=== PATIENT | male | born 1940 | race Caucasian/White ===

== ENCOUNTER 2020-07-28 15:39 | Emergency (ER) | payer MEDICARE ==
--- NOTE | 2020-07-28 19:54 | ER ---
REASON FOR EMERGENCY ROOM VISIT: Fatigue and shortness of breath on exertion. HISTORY: This 80-year-old man comes in because of persistent dyspnea on exertion over the past months' time. Over the past few days, it has gotten even more troublesome to him and his , although when he is not exerting himself he denies any dyspnea or chest pain. In early May, there were 5 members of his family who tested positive for COVID-19. I cannot recall exactly how many of these clinically had clinical COVID-19 illness, but 5 of them definitely tested positive. The patient and his at the same time developed some sinus type symptoms with congestion and nasal rhinorrhea followed by loss of taste and smell. They were told not to bother coming in and getting a COVID test since they had no other symptoms and they were doing alright. They followed these directions and the 's symptoms resolved. However, the patient's symptoms evolved over the next couple of weeks to a cough that moved down to his chest area. It was minimally productive and it eventually resolved. However, since late May, he has had dyspnea on exertion and in fact, [facility], at which time he had complaints of dyspnea on exertion. No chest x-ray was performed. His doctor told him to "take it easy" and that was the extent of it. He did not have a COVID test done at that time. Throughout all this, he denies any chest pain. He has not had a cough. He has not had any GI symptoms. He denies fever or chills. He has not had any hemoptysis. PAST MEDICAL HISTORY: Significant for: 1. Hypertension. 2. Benign prostate hyperplasia symptoms. 3. No history of cardiac disease or diabetes. MEDICATIONS: Include metoprolol 100 mg p.o. daily, Flomax 0.4 mg p.o. daily, sertraline 50 mg p.o. daily, and famotidine 10 mg p.o. daily. ALLERGIES: TO PREDNISONE. REVIEW OF SYSTEMS: Pertinent positives and negatives as listed in the HPI. PHYSICAL EXAMINATION: GENERAL: He is a pleasant man who does not appear to be in any acute distress. VITAL SIGNS: He is afebrile. Heart rate is 60, blood pressure 129/73, respirations 16, O2 sats 97%. HEENT: Head is normocephalic. No scleral icterus. No conjunctivitis is noted. Oropharynx is normal in appearance. NECK: Without adenopathy. Trachea is midline. CHEST: He has good air exchange with no wheezes, rhonchi, or rales. CARDIAC: Regular rate without murmur. ABDOMEN: Nondistended. Bowel sounds are present. Soft and nontender. No hepatosplenomegaly. EXTREMITIES: Normal pulses. No edema. No deformities. SKIN: No rashes. LABORATORY DATA: We obtained a CBC and this is normal with a white count of 6600 and a hemoglobin of 14.3. CMP is all within normal limits with the exception that his glucose is mildly elevated at 126, but this is nonfasting. His SARS-CoV-2 RNA was negative. A chest x- ray was revealing in that it showed what was called a nearly confluent reticulonodular pulmonary opacities throughout the lungs, possibly suggestive of COVID-19 pneumonia versus pulmonary edema. IMPRESSION: Exertional Dyspnea, possibly secondary to Covid19 Given his symptoms and I think it is entirely possible that he is experiencing sequelae of COVID-19, from which he has recovered for the most part. His dyspnea could be results of residual scarring as a result of COVID-19 or some fluid overload, but I suspect the former more than the latter. In light of his feeling perfectly normal at rest, and his only complaint being dyspnea on exertion, I thought it was sensible for him to follow up with his primary care provider, which he states is at the [facility]. We did discuss the advisability of him having a primary care provider here locally, but he prefers to continue with his care at the [facility]. He assures me he can get in to see him early this week, which is what I advised. I also told him and his that it would be sensible to repeat a COVID test, possibly even an antibody test for COVID to document that he has had the disease. He understands this. At this point, he is not a candidate for anything such as dexamethasone, particularly since he is allergic to prednisone and he is not a candidate for remdesivir or monoclonal antibody either, given his Covid19 test was negative. I advised him on vitamin D3, vitamin C, and zinc as well some other general supportive measures. Certainly, if his symptoms should worsen, he should return here or be seen promptly by his primary care provider. All questions were answered. They understand and agree with this plan. BARBARA/NELSON /[id number] JESS
--- NOTE | 2020-07-29 08:41 | CR ---
Date of Service: 07/28/20 Clinical Data: history of covid symptoms AP CHEST: No priors. The patient has taken a poor inspiration. The heart is mildly enlarged. It is most likely accentuated by the poor inspiration and projection. There are poorly defined ground-glass opacities throughout both lungs with patchy areas of consolidation bilaterally. Viral pneumonia should be considered. No pneumothorax. No pleural effusions. [id number] [facility]
== END 2020-07-28 18:52 | disposition home or self-care (01) ==
LOC: LB.ED 15:39
DX: R06.00 Dyspnea, unspecified (principal); R53.83 Other fatigue; I10 Essential (primary) hypertension; Z88.8 Allergy status to other drugs, medicaments and biological substances; Z79.899 Other long term (current) drug therapy; Z20.822 Contact with and (suspected) exposure to COVID-19
CPT/HCPCS: 36415; 71045; 80053; 85025; 99283; 99285-25; U0002

== ENCOUNTER 2020-12-23 14:19 | Emergency (ER) | payer OTHER ==
[2020-12-23] MEDS ORDERED: Sodium Chloride 0.9% 10 ML Syringe FLUSH PRN (16:34)
[2020-12-23] MEDS ORDERED: Albuterol/Ipratropium 3.0-0.5 MG/3 ML Neb Soln NEB STA ×2 (16:34→18:46)
[2020-12-23] MEDS ORDERED: Albuterol/Ipratropium 3.0-0.5 MG/3 ML Neb Soln ONE ×2 (16:56→18:48)
--- NOTE | 2020-12-23 16:59 | EDM.PDOC ---
ED HPI GENERAL MEDICAL PROBLEM - General Chief Complaint: Respiratory Problem Stated Complaint: FEELING WINDED Time Seen by Provider: 12/23/20 16:00 Source of Information: Reports: Patient, Family History Limitations: Reports: No Limitations - History of Present Illness INITIAL COMMENTS - FREE TEXT/NARRATIVE: patient presented to the ER with a c/o SOB and dyspnea for 2-3 weeks Reports that he was diagnosed with pulmonary fibrosis and PE earlier this year. Was started on Eliquis and prednisone. He improved after prednisone course.. not on it at this time. not using inhalers as well. Denies fever or chills. But reports cough and worsening SOB. Exacerbated with activities. cough is productive of whitish sputum. no CP. also reports edema of b/l legs. Onset: Gradual Duration: Chronic Location: Reports: Chest - Related Data Allergies Allergy/AdvReac Type Severity Reaction Status Date / Time No Known Allergies Allergy Verified 12/23/20 16:33 Home Meds: Home Meds Famotidine 20 mg PO QAM 07/28/20 [History] Metoprolol Tartrate 200 mg PO DAILY 07/28/20 [History] Sertraline HCl 100 mg PO DAILY 07/28/20 [History] Tamsulosin HCl [Flomax] 0.4 mg PO BEDTIME 07/28/20 [History] Albuterol [Proventil Neb Soln] 2.5 mg .XX DAILY #30 neb 12/23/20 [Rx] Amoxicillin 500 mg PO BID #14 tab 12/23/20 [Rx] Apixaban [Eliquis] 5 mg PO QAM 12/23/20 [History] Cholecalciferol (Vitamin D3) [Vitamin D3] 25 mcg PO DAILY 12/23/20 [History] Fish Oil/DHA/EPA [Fish Oil 1,200 MG] 1 cap PO DAILY 12/23/20 [History] Garlic 1 tab PO DAILY 12/23/20 [History] Miscellaneous Medical Supply [DME for Prescription] 1 each .XX ASDIRECTED #1 ea ch 12/23/20 [Rx] metFORMIN [Glucophage] 500 mg PO BIDMEALS #60 tab 12/23/20 [Rx] methylPREDNISolone [Medrol Dose Pack] 84 mg PO DAILY #1 dospk 12/23/20 [Rx] Past Medical History Other HEENT History: glasses Cardiovascular History: Reports: None Genitourinary History: Reports: Prostate Disorder Social & Family History - Caffeine Use Caffeine Use: Reports: None ED ROS GENERAL - Review of Systems Review Of Systems: See Below Constitutional: Reports: No Symptoms HEENT: Reports: No Symptoms Respiratory: Reports: Shortness of Breath, Cough, Sputum. Denies: Pleuritic Chest Pain, Hemoptysis Cardiovascular: Reports: No Symptoms GI/Abdominal: Reports: No Symptoms Musculoskeletal: Reports: No Symptoms Skin: Reports: No Symptoms Neurological: Reports: No Symptoms Psychiatric: Reports: No Symptoms ED EXAM, GENERAL - Physical Exam Exam: See Below Exam Limited By: No Limitations General Appearance: Alert, WD/WN, No Apparent Distress Eye Exam: Bilateral Eye: EOMI, PERRL Head: Atraumatic, Normocephalic Respiratory/Chest: Chest Non-Tender, Crackles (corse crackles diffuse and bilateral ) Cardiovascular: Normal Peripheral Pulses, Regular Rate, Rhythm Neurological: Alert, Oriented, No Motor/Sensory Deficits Psychiatric: Normal Affect Course - Vital Signs Last Recorded V/S: Last Vital Signs Temp 36.5 C 12/23/20 16:10 Pulse 76 12/23/20 16:10 Resp 26 H 12/23/20 16:10 BP 116/87 12/23/20 16:10 Pulse Ox 94 L 12/23/20 16:10 - Orders/Labs/Meds Orders: Active Orders 24 hr Category Date Time Status Chest 1V Frontal [CR] Stat Exams 12/23/20 16:34 Taken Saline Lock Insert [OM.PC] Routine Oth 12/23/20 16:34 Ordered Labs: Laboratory Tests 12/23/20 12/23/20 12/23/20 Range/Units 16:45 16:50 16:50 WBC 6.0 (4.0-11.0) K/uL RBC 4.24 L (4.50-6.50) M/uL Hgb 13.2 (13.0-18.0) g/dL Hct 38.9 L (40.0-54.0) % MCV 92 (76-96) fL MCH 31.1 (27.0-32.0) pg MCHC 33.9 (31.0-35.0) g/dL RDW 15.3 (11.0-16.0) % Plt Count 160 D (150-400) K/uL MPV 8.9 (6.0-10.0) fL Sodium 136 (136-145) mmol/L Potassium 4.5 (3.5-5.1) mmol/L Chloride 99 (98-107) mmol/L Carbon Dioxide 29.1 (21.0-32.0) mmol/L Anion Gap 12.4 (5.0-15.0) mmol/L BUN 22 (8-26) mg/dL Creatinine 1.34 H (0.70-1.30) mg/dL Est Cr Clr Drug Dosing 49.87 mL/min Estimated GFR (MDRD) 52 L (>60) MLS/MIN BUN/Creatinine Ratio 16.4 (6-25) Glucose 323 H D (74-100) mg/dL Hemoglobin A1c 9.3 H (< 5.7) % Calcium 8.6 (8.5-10.1) mg/dL B-Natriuretic Peptide 409 (0-450) pg/mL SARS-CoV-2 RNA (SAMANTHA) (NEGATIVE) 12/23/20 Range/Units 18:14 WBC (4.0-11.0) K/uL RBC (4.50-6.50) M/uL Hgb (13.0-18.0) g/dL Hct (40.0-54.0) % MCV (76-96) fL MCH (27.0-32.0) pg MCHC (31.0-35.0) g/dL RDW (11.0-16.0) % Plt Count (150-400) K/uL MPV (6.0-10.0) fL Sodium (136-145) mmol/L Potassium (3.5-5.1) mmol/L Chloride (98-107) mmol/L Carbon Dioxide (21.0-32.0) mmol/L Anion Gap (5.0-15.0) mmol/L BUN (8-26) mg/dL Creatinine (0.70-1.30) mg/dL Est Cr Clr Drug Dosing mL/min Estimated GFR (MDRD) (>60) MLS/MIN BUN/Creatinine Ratio (6-25) Glucose (74-100) mg/dL Hemoglobin A1c (< 5.7) % Calcium (8.5-10.1) mg/dL B-Natriuretic Peptide (0-450) pg/mL SARS-CoV-2 RNA (SAMANTHA) Negative (NEGATIVE) Meds: Medications Discontinued Medications Generic Name Dose Route Start Last Admin Trade Name Freq PRN Reason Stop Dose Admin Albuterol/Ipratropium 3 ml 12/23/20 16:34 12/23/20 16:48 Albuterol/Ipratropium 3.0-0.5 Mg/3 Ml Neb Soln NEB 12/23/20 16:35 3 ml NOW STA Administration Albuterol/Ipratropium Confirm 12/23/20 16:56 12/23/20 16:48 Albuterol/Ipratropium 3.0-0.5 Mg/3 Ml Neb Soln Administered 12/23/20 16:57 Not Given Dose 3 ml .ROUTE .STK-MED ONE Albuterol/Ipratropium 3 ml 12/23/20 18:46 12/23/20 18:48 Albuterol/Ipratropium 3.0-0.5 Mg/3 Ml Neb Soln NEB 12/23/20 18:47 3 ml NOW STA Administration Albuterol/Ipratropium Confirm 12/23/20 18:48 Albuterol/Ipratropium 3.0-0.5 Mg/3 Ml Neb Soln Administered 12/23/20 18:49 Dose 3 ml .ROUTE .STK-MED ONE Amoxicillin 500 mg 12/23/20 18:46 12/23/20 18:48 Amoxicillin 500 Mg Cap PO 12/23/20 18:47 500 mg ONETIME ONE Administration Amoxicillin Confirm 12/23/20 18:47 Amoxicillin 500 Mg Cap Administered 12/23/20 18:48 Dose 500 mg .ROUTE .STK-MED ONE Sodium Chloride 10 ml 12/23/20 16:34 Sodium Chloride 0.9% 10 Ml Syringe FLUSH ASDIRECTED PRN Keep Vein Open - Re-Assessments/Exams Free Text/Narrative Re-Assessment/Exam: was connected to a monitor CXR showed e/o b/l diffuse pulmonary fibrosis. labs were ordered - significant for hyperglycemia and leukocytosis - patient recently finished a course of oral prednisone. a DuoNeb was given - helped significancy with symptoms - able to breath easier was recommend to start on oral Abx and Medrol dose pack also was prescribed a neb machine DME and albuterol HR was dipping down to mid 40's - was recommended to cut metoporol XL 100mg in half - to take 50mg instead for hyperglycemia - will start him on metformin PO BID Departure - Departure Time of Disposition: 18:44 Disposition: Home, Self-Care 01 Condition: Good Clinical Impression: Hyperglycemia, Pulmonary fibrosis, SOB (shortness of breath) - Discharge Information *PRESCRIPTION DRUG MONITORING PROGRAM REVIEWED*: Not Applicable *COPY OF PRESCRIPTION DRUG MONITORING REPORT IN PATIENT JENNIFER: Not Applicable Prescriptions: Amoxicillin 500 mg PO BID #14 tab Miscellaneous Medical Supply [DME for Prescription] 1 each .XX ASDIRECTED #1 each metFORMIN [Glucophage] 500 mg PO BIDMEALS #60 tab methylPREDNISolone [Medrol Dose Pack] 84 mg PO DAILY #1 dospk Albuterol [Proventil Neb Soln] 2.5 mg .XX DAILY #30 neb Instructions: Shortness of Breath, Adult, [id number], Pulmonary Fibrosis, Hyperglycemia, [id number] Referrals: PCP,None [Primary Care Provider] - Forms: ED Department Discharge Additional Instructions: Cut metoprolol dose in half to 50 mg. Take steroids, antibiotics, and metformin and nebulizer as prescribed. Follow up with your primary care doctor. Listen to your Sepsis Event Note (ED) - Evaluation Sepsis Screening Result: No Definite Risk - Focused Exam Vital Signs: Vital Signs Temp Pulse Resp BP Pulse Ox 12/23/20 16:10 36.5 C 76 26 H 116/87 94 L - Problem List & Annotations (1) Pulmonary fibrosis SNOMED Code(s): 56149440 Code(s): J84.10 - PULMONARY FIBROSIS, UNSPECIFIED Status: Acute Priority: Low (2) Hyperglycemia SNOMED Code(s): 25625520 Code(s): R73.9 - HYPERGLYCEMIA, UNSPECIFIED Status: Acute Priority: Low (3) SOB (shortness of breath) SNOMED Code(s): 904721152 Code(s): R06.02 - SHORTNESS OF BREATH Status: Acute Priority: Low - Problem List Review Problem List Initiated/Reviewed/Updated: Yes - My Orders Last 24 Hours: My Active Orders 12/23/20 16:34 Chest 1V Frontal [CR] Stat Saline Lock Insert [OM.PC] Routine - Assessment/Plan Last 24 Hours: My Active Orders 12/23/20 16:34 Chest 1V Frontal [CR] Stat Saline Lock Insert [OM.PC] Routine Plan: - start using neb treatment as prescribed - take antibiotics starting tomorrow - use steroids as prescribed - decreases metoprolol to 50mg once daily - start taking metformin for high blood sugar - follow up with your PCP in 3-10 days
[2020-12-23 18:29] LABS: HEMOGLOBIN A1C 9.3 % (< 5.7)
[2020-12-23] MEDS ORDERED: Amoxicillin 500 MG Cap PO ONE (18:46)
[2020-12-23] MEDS ORDERED: Amoxicillin 500 MG Cap ONE (18:47)
--- NOTE | 2020-12-24 07:21 | CR ---
Date of Service: 12/23/20 Clinical Data: SOB AP CHEST: Comparison is made to a prior exam dated 07/28/20. The heart remains remains enlarged, unchanged. There are scattered reticular opacities throughout both lungs with scattered ground-glass opacities in both lungs. Pneumonia should be considered. No pneumothorax. No pleural effusions. Followup is recommended. [id number] [facility]
== END 2020-12-23 19:08 | disposition home or self-care (01) ==
LOC: LB.ED 14:19
DX: J84.10 Pulmonary fibrosis, unspecified (principal); R73.9 Hyperglycemia, unspecified; Z20.822 Contact with and (suspected) exposure to COVID-19; Z79.01 Long term (current) use of anticoagulants; Z79.84 Long term (current) use of oral hypoglycemic drugs; Z79.899 Other long term (current) drug therapy
CPT/HCPCS: 36415; 71045; 80048; 83036; 83880; 85027; 87430; 99284; 99285-25; A9270-GY; J7620-GY; U0002

== ENCOUNTER 2021-10-05 16:12 | Emergency (ER) | payer OTHER | END 2021-10-05 17:50 | disposition home or self-care (01) | LOC: LB.ED 16:12 | DX: J84.10 Pulmonary fibrosis, unspecified (principal); R53.81 Other malaise; R53.83 Other fatigue; K21.9 Gastro-esophageal reflux disease without esophagitis; Z79.899 Other long term (current) drug therapy; Z20.822 Contact with and (suspected) exposure to COVID-19 | CPT/HCPCS: 36415; 80053; 84443; 85025; 87804; 87804-59; 99283; 99284; U0002 ==